=== PATIENT | male | born 1995 | race Caucasian/White ===

== ENCOUNTER → 2017-10-19 09:55 | Outpatient (CLI) | payer OTHER, SELFPAY ==
[2017-10-19 11:29] LABS: Alanine Aminotransferase 39 U/L (12-78); Albumin Level 4.2 gm/dL (3.4-5.0); Albumin/Globulin Ratio 1.1 (1.1-1.8); Alkaline Phosphatase 75 U/L (46-116); Anion Gap 14.1 mEq/L (5-15); Aspartate Amino Transferase 24 U/L (15-37); Bilirubin,Total 0.6 mg/dL (0.2-1.0); Blood Urea Nitrogen 15 mg/dL (7-18); Calcium 9.5 mg/dL (8.5-10.1); Carbon Dioxide 26 mmol/L (21.0-32.0); Chloride 103 mmol/L (98-107); Chol/HDL Ratio 5.8 (1-3.5); Cholesterol 236 mg/dL (140-200); Creatinine,Serum 0.96 mg/dL (0.70-1.30); Estimated Glomerular Filt Rate 99 ml/min (>60); GFR (African American) 120 ML/MIN (>60); Globulin 3.8 gm/dl (1.3-3.2); Glucose 95 mg/dL (74-106); HDL Cholesterol 41 mg/dL (27-67); LDL Cholesterol 165 mg/dL (0-130); Potassium 4.1 mmoL/L (3.5-5.1); Sodium 139 mmol/L (136-145); T4 (Thyroxine) 11.3 ug/dl (4.7-13.3); Thyroid Stimulating Hormone 3.07 uIU/ml (0.358-3.740); Triglycerides 149 mg/dL (30-200); VLDL Cholesterol 30 mg/dL (0-40)
== END ==
PROVIDERS: PCP Nurse Practitioner Family; Visit Provider Nurse Practitioner Family
DX: Z00.00 Encounter for general adult medical examination without abnormal findings (principal); R53.83 Other fatigue; J45.909 Unspecified asthma, uncomplicated
CPT/HCPCS: 36415; 80053; 80061; 82652; 84436; 84443

== ENCOUNTER → 2018-01-30 10:24 | Outpatient (CLI) | payer OTHER, SELFPAY ==
--- NOTE | 2018-01-30 10:26 | XR_ITS ---
EXAM: XR cervical spine 5V HISTORY: ITS.REASON: neck pain ORDERING PHYSICIAN: Gaby Howell PATIENT AGE: 22 years COMPARISON: None FINDINGS: No fracture or dislocation. No lytic or blastic change. No significant degenerative change. There is minimal anterolisthesis of C4 of 2 to 3 mm. This is of questionable clinical significance. No other significant anomalies are evident. IMPRESSION: Minimal anterolisthesis of C4 without prevertebral soft tissue swelling or significant degenerative change otherwise negative
--- NOTE | 2018-01-30 10:26 | XR_ITS ---
EXAM: XR lumbar spine 2-3V HISTORY: ITS.REASON: back pain ORDERING PHYSICIAN: Gaby Howell PATIENT AGE: 22 years COMPARISON: None FINDINGS: Normal alignment. No fracture or dislocation. No lytic or blastic change. No significant degenerative change. The disc spaces are preserved. IMPRESSION: Negative lumbar spine
--- NOTE | 2018-01-30 10:26 | XR_ITS ---
EXAM: XR thoracic spine 3V HISTORY: ITS.REASON: back pain Comparison: None FINDINGS: Normal alignment. No fracture or dislocation. No lytic or blastic change. No significant degenerative change. The disc spaces are preserved. There is mild mid thoracic curvature convex right. No congenital anomalies. IMPRESSION: Dextroscoliosis of the midthoracic spine otherwise negative
== END ==
PROVIDERS: PCP Nurse Practitioner Family; Visit Provider Nurse Practitioner Family
DX: M54.9 Dorsalgia, unspecified (principal); M54.2 Cervicalgia; M54.5 Low back pain
CPT/HCPCS: 72050; 72072; 72100

== ENCOUNTER 2018-02-13 07:51 | Outpatient (RCR) | payer OTHER, SELFPAY ==
--- NOTE | 2018-02-13 08:27 | [facility].PTOPEV ---
PT Outpatient Evaluation Rehab PT Outpatient Evaluation Start: 02/13/18 08:16 Freq: Status: Active Protocol: Document 02/13/18 08:17 SEVERIANO (Rec: 02/13/18 08:27 SEVERIANO [id number]) Electronically Signed By Rai Trevino, PT 02/13/18 08:17 Outpatient Therapy Subjective History Subjective History Pt reports h/o chronic LBP and mid back pain after yrs of heavy lifting while participating in youth football, basketball, and baseball. Pt reports one fall down steps ~ 10 yrs 'which may contribute to some of my pain '. Recent Xrays of cervical, thoracic, and lumbar spine were found to be grossly negative. Pt currently reports midline LBP with referred pain into B lumbar paraspinals , and intermittent mid back following lifting activities. Chief Complaint Pain Symptom Type Ache Sharp Dull Symptoms Relieved By Rest/Positioning Symptoms Aggravated By Bending/Stooping Physical Activity Lifting Prior Functional Limitations Lifting Squatting Bending/Stooping Current Functional Limitations Lifting Squatting Bending/Stooping Symptom Description Constant but Variable Level of pain today (0-10) 1 Pain scale - at its best (0-10) 0 Pain scale - at its worst (0-10) 10 Lumbopelvic Eval Posture Thoracic Spine Posture Standing Position Flexible Scoliosis on (R) Lumbar Spine Posture Standing Position Neutral Assistive device Assistive Devices None / NA Palapation tenderness bilateral thoracic spinal tenderness Yes: 3/4 lumbar spinal tenderness Yes: 3/4 paraspinal tenderness Yes: 3/4 buttock tenderness Yes: 1/4 Lumbar/Sacral Palpation Findings Tenderness Accessory Movement T-spine Vertebrae Accessory Movements Central P/A [place] that [place] Symptoms T10 bilateral T11 bilateral T12 bilateral L-spine Vertebrae Accessory Movements Central P/A [place] that [place]it Symptoms L2 bilateral L3 bilateral L4
== END 2018-02-13 08:00 | disposition home or self-care (01) ==
LOC: PT 07:51
PROVIDERS: Visit Provider Nurse Practitioner Family
DX: M54.2 Cervicalgia (principal); M54.5 Low back pain
CPT/HCPCS: 97163